=== PATIENT | male | born 1995 | race Two or more races ===

== ENCOUNTER 2018-01-01 19:04 | Emergency (ER) | payer SELFPAY ==
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
--- NOTE | 2018-01-01 19:54 | XRAY Preliminary Report ---
Exam: XR KNEE 4 VIEW RT IMPRESSION: Normal knee radiography. [facility] SITE ID: [id number]
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
[2018-01-01 20:31] VITALS: BP 123/78
== END 2018-01-01 20:30 | disposition home or self-care (01) ==
LOC: ED 19:04
DX: S86.911A Strain of unspecified muscle(s) and tendon(s) at lower leg level, right leg, initial encounter (principal); Y08.89XA Assault by other specified means, initial encounter; R03.0 Elevated blood-pressure reading, without diagnosis of hypertension
CPT/HCPCS: 99283

== ENCOUNTER 2018-04-27 21:23 | Emergency (ER) | payer SELFPAY ==
[2018-04-27 21:49] VITALS: BP 125/93
[2018-04-27] MEDS ORDERED: POLYMYXIN B/TRIMETH OPHTH DROPS LEFTEYE STA (22:06)
--- NOTE | 2018-04-27 22:08 | ED Physician Documentation ---
History of Present Illness - Stated complaint Stated Complaint: EYE IRRITATION - Chief complaint Chief Complaint: General - History obtained from History obtained from: Patient - History of Present Illness Timing: Today Pain level max: 2 Pain level now: 2 Improved by: nothing Worsened by: nothing - Additonal information Additional information: L eye drainage and redness today. Review of Systems Constitutional: denies: Fever, Chills Eyes: reports: Other (does not wear contacts.). denies: Decreased vision, Photophobia Nose: denies: Rhinorrhea / runny nose, Congestion Throat: denies: Sore throat Cardiac: denies: Chest pain / pressure Skin: denies: Rash PD PAST MEDICAL HISTORY - Past Medical History Past Medical History: No - Past Surgical History Past Surgical History: No - Present Medications Home Medications: Ambulatory Orders Medication Instructions Recorded Confirmed Polymyxin B/Trimeth Ophth Drop 1 drops LEFTEYE Q3H 7 Days #1 04/27/18 [Polytrim Ophth Drops] bottle - Allergies Allergies/Adverse Reactions: Allergies Allergy/AdvReac Type Severity Reaction Status Date / Time No Known Drug Allergies Allergy Verified 04/27/18 21:50 - Social History Does the pt smoke?: No Smoking Status: Never smoker Does the pt drink ETOH?: No Does the pt have substance abuse?: No - Immunizations Immunizations are current?: Yes - POLST Patient has POLST: No PD ED PE NORMAL - Vitals Vital signs reviewed: Yes - General General: Alert and oriented X 3, No acute distress - HEENT HEENT: Moist mucous membranes, Pharynx benign, Other (Left eye, normal eyelids. Conjunctival injection present. Mild yellow/green discharge. Right eye normal) - Neck Neck: Supple, no meningeal sign - Cardiac Cardiac: RRR - Respiratory Respiratory: No respiratory distress, Clear bilaterally - Derm Derm: Warm and dry - Neuro Neuro: Alert and oriented X 3 Results - Vitals Vitals: Vital Signs - 24 hr 04/27/18 21:45 Temperature 37.0 C Heart Rate 71 Respiratory 17 Rate Blood Pressure 125/93 H O2 Saturation 100 Oxygen O2 Source Room air PD MEDICAL DECISION MAKING - ED course Complexity details: considered differential, d/w patient ED course: Patient is a 23-year-old male with a left eye bacterial conjunctivitis. Will place on Polytrim ophthalmic and follow-up with his doctor. Patient counseled regarding signs and symptoms for which I believe and urgent re-evaluation would be necessary. Patient with good understanding of and agreement to plan and is comfortable going home at this time This document was made in part using voice recognition software. While efforts are made to proofread this document, sound alike and grammatical errors may occur. - Sepsis Event Vital Signs: Vital Signs - 24 hr 04/27/18 21:45 Temperature 37.0 C Heart Rate 71 Respiratory 17 Rate Blood Pressure 125/93 H O2 Saturation 100 Oxygen O2 Source Room air Departure - Departure Disposition: Home, Self Care Clinical Impression: Conjunctivitis Qualifiers: Conjunctivitis type: acute Acute conjunctivitis type: bacterial Laterality: left Qualified Code(s): H10.32 - Unspecified acute conjunctivitis, left eye Condition: Good Instructions: ED Conjunctivitis Bacterial Follow-Up: your,doctor in 1 week if not better [Other] Prescriptions: Polymyxin B/Trimeth Ophth Drop [Polytrim Ophth Drops] 1 drops LEFTEYE Q3H 7 Days #1 bottle Comments: Return if you worsen. Use the drops as instructed. Forms: Activity restrictions Discharge Date/Time: 04/27/18 22:14
== END 2018-04-27 22:14 | disposition home or self-care (01) ==
LOC: ED 21:23
DX: H10.32 Unspecified acute conjunctivitis, left eye (principal)
CPT/HCPCS: 99283; A9270

== ENCOUNTER 2020-02-14 09:43 | Emergency (ER) | payer SELFPAY ==
[2020-02-14 09:51] VITALS: BP 142/85
--- NOTE | 2020-02-14 10:12 | ED Physician Documentation ---
History of Present Illness - Stated complaint Stated Complaint: RETURN TO WORK-NOTE - Chief complaint Chief Complaint: General - History obtained from History obtained from: Patient - History of Present Illness Timing: Other (The patient states he had been in social contact with someone who may have had coded 2 weeks ago. He had been home self quarantining for the last 2 weeks and has not had any respiratory symptoms. He wanted to return to work and his employer stated he needed a work note in order to do so.) Review of Systems Constitutional: denies: Fever Throat: denies: Sore throat Respiratory: denies: Dyspnea, Cough GI: denies: Vomiting, Diarrhea PD PAST MEDICAL HISTORY - Past Medical History Past Medical History: No Cardiovascular: None Respiratory: None Neuro: None Endocrine/Autoimmune: None GI: None : None HEENT: None Psych: None Musculoskeletal: None Derm: None - Past Surgical History Past Surgical History: No - Present Medications Home Medications: Ambulatory Orders Medication Instructions Recorded Confirmed Polymyxin B/Trimeth Ophth Drop 1 drops LEFTEYE Q3H 7 Days #1 04/27/18 [Polytrim Ophth Drops] bottle - Allergies Allergies/Adverse Reactions: Allergies Allergy/AdvReac Type Severity Reaction Status Date / Time No Known Drug Allergies Allergy Verified 02/14/20 09:47 - Social History Does the pt smoke?: No Smoking Status: Never smoker Does the pt drink ETOH?: Yes Does the pt have substance abuse?: Yes Substance Use and Type: Marijuana - Immunizations Immunizations are current?: Yes - POLST Patient has POLST: No PD ED PE NORMAL - Vitals Vital signs reviewed: Yes - General General: Alert and oriented X 3, No acute distress, Well developed/nourished - Neck Neck: Supple, no meningeal sign, No adenopathy - Cardiac Cardiac: RRR, No murmur - Respiratory Respiratory: Clear bilaterally - Derm Derm: Normal color, Warm and dry - Neuro Neuro: Alert and oriented X 3, No motor deficit, Normal speech Results - Vitals Vitals: Vital Signs - 24 hr 02/14/20 09:47 Temperature 36.4 C L Heart Rate 86 Respiratory 16 Rate Blood Pressure 142/85 H O2 Saturation 99 Oxygen O2 Source Room air PD MEDICAL DECISION MAKING - ED course Complexity details: considered differential (I gave the patient a copy of the CDC guidelines for businesses and highlighted the section of not requiring notes from healthcare workers for their employees to be off work or return to work. 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 The patient was happy to have this reference in order to give to his employer.), d/w patient Departure - Departure Disposition: 01 Home, Self Care Clinical Impression: Well adult Condition: Stable Record reviewed to determine appropriate education?: Yes Comments: I gave you a copy of the CDC guidelines and please make a copy to refer to your employer. I wrote a note to the effect that you say or how well but I cannot guarantee you not becoming ill in the near future. Forms: Activity restrictions
== END 2020-02-14 10:16 | disposition home or self-care (01) ==
LOC: ED 09:43
DX: Z02.89 Encounter for other administrative examinations (principal)
CPT/HCPCS: 99282